=== PATIENT | female | born 1970 | race Caucasian/White ===

== ENCOUNTER 2022-07-14 13:44 | Outpatient (CLI) | payer OTHER | END 2022-07-14 13:45 | disposition home or self-care (01) | LOC: CSHMRI 13:44 | PROVIDERS: ATTEND Registered Nurse | DX: M54.16 Radiculopathy, lumbar region (principal); M48.56XA Collapsed vertebra, not elsewhere classified, lumbar region, initial encounter for fracture; G95.19 Other vascular myelopathies; M51.26 Other intervertebral disc displacement, lumbar region; M48.061 Spinal stenosis, lumbar region without neurogenic claudication; G95.89 Other specified diseases of spinal cord | CPT/HCPCS: 72148 ==

== ENCOUNTER 2023-05-16 13:36 | Outpatient (CLI) | payer OTHER ==
[~2023-05-16 13:36] MED LIST: Magnevist 469MG/ML 20 ML VIAL ONE
== END 2023-05-16 13:37 | disposition home or self-care (01) ==
LOC: CSHMRI 13:36
PROVIDERS: ATTEND Neurological Surgery
DX: M47.26 Other spondylosis with radiculopathy, lumbar region (principal); M48.061 Spinal stenosis, lumbar region without neurogenic claudication; R93.7 Abnormal findings on diagnostic imaging of other parts of musculoskeletal system
CPT/HCPCS: 72158

== ENCOUNTER 2023-08-17 08:10 | Outpatient (CLI) | payer OTHER | END 2023-08-17 08:11 | disposition home or self-care (01) | LOC: CSHWCC 08:10 | PROVIDERS: ATTEND Physician Assistant | DX: T23.0 Burn of unspecified degree of wrist and hand (principal); L98.492 Non-pressure chronic ulcer of skin of other sites with fat layer exposed; Z72.0 Tobacco use | CPT/HCPCS: 97597; 99213; G0463 ==

== ENCOUNTER 2023-08-31 08:11 | Outpatient (CLI) | payer OTHER | END 2023-08-31 08:12 | disposition home or self-care (01) | LOC: CSHWCC 08:11 | PROVIDERS: ATTEND Physician Assistant | DX: L98.492 Non-pressure chronic ulcer of skin of other sites with fat layer exposed (principal); T23.0 Burn of unspecified degree of wrist and hand; Z72.0 Tobacco use | CPT/HCPCS: 97597 ==

== ENCOUNTER 2024-10-11 15:10 | Outpatient (CLI) | payer OTHER | END 2024-10-11 15:11 | disposition home or self-care (01) | LOC: CSHULT 15:10 | DX: R22.31 Localized swelling, mass and lump, right upper limb (principal) ==

== ENCOUNTER 2024-11-06 12:37 | Outpatient (CLI) | payer OTHER | END 2024-11-06 12:38 | disposition home or self-care (01) | LOC: CSHULT 12:37 | PROVIDERS: ATTEND Family Medicine | DX: R01.1 Cardiac murmur, unspecified (principal); I35.8 Other nonrheumatic aortic valve disorders | CPT/HCPCS: 93306 ==

== ENCOUNTER 2025-06-04 10:51 | Day surgery (SDC) | payer OTHER ==
[2025-05-29 11:05] VITALS: BMI 28.6
[2025-06-04] MEDS ORDERED: PROPOFOL 0 ML ONE (13:51)
[2025-06-04] MEDS ORDERED: PROPOFOL 60 ML ONE (15:12)
== END 2025-06-04 17:38 | disposition home or self-care (01) ==
LOC: CSHSDC 10:51
PROVIDERS: ATTEND Surgery
PROC: 0DJD8ZZ Inspection of Lower Intestinal Tract, Via Natural or Artificial Opening Endoscopic (ICD-10-PCS; principal; 2025-06-04)
DX: K59.00 Constipation, unspecified (principal); K21.9 Gastro-esophageal reflux disease without esophagitis; I12.9 Hypertensive chronic kidney disease with stage 1 through stage 4 chronic kidney disease, or unspecified chronic kidney disease; N18.31 Chronic kidney disease, stage 3a; E78.2 Mixed hyperlipidemia; F41.8 Other specified anxiety disorders; F17.200 Nicotine dependence, unspecified, uncomplicated; Z98.51 Tubal ligation status; Z88.5 Allergy status to narcotic agent; Z88.8 Allergy status to other drugs, medicaments and biological substances; Z88.1 Allergy status to other antibiotic agents; Z79.899 Other long term (current) drug therapy
CPT/HCPCS: J2250; J2704; J7620

== ENCOUNTER 2025-07-03 08:09 | Outpatient (CLI) | payer OTHER | END 2025-07-03 08:10 | disposition home or self-care (01) | LOC: CSHMRI 08:09 | PROVIDERS: ATTEND Student in an Organized Health Care Education/Training Program | DX: M00.9 Pyogenic arthritis, unspecified (principal); Z98.890 Other specified postprocedural states; M25.461 Effusion, right knee; S83.241A Other tear of medial meniscus, current injury, right knee, initial encounter; R93.6 Abnormal findings on diagnostic imaging of limbs; M79.89 Other specified soft tissue disorders ==